=== PATIENT | female | born 1925 | race Caucasian/White ===

== ENCOUNTER 2017-05-12 07:34 | Emergency (ER) | payer MEDICARE, OTHER ==
--- NOTE | 2017-05-14 16:27 | ER ---
ADMIT: 05/12/2017 RM/LOC: ER [facility] MR#: [id number] [id number] ANNET[place] [address] [facility] Emergency Room Report SEX: F AGE: 89 : 1925 DATE: 05/12/2017 See T sheet for complete H and P. ADDENDUM: An 89-year-old female who comes in for a [facility] up to 101.6 in the [facility] and sats that were 88%. She really has no complaints. She had received Tylenol prior to arrival, and she has been afebrile in the emergency department. She denies any difficulty breathing. Does not have any complaints of pain at this time other than chronic pain in her left knee and some chronic pain in her neck. Her physical exam showed that she was borderline tachycardic when she got here, but that has resolved. Our workup in the ER showed that her chest x-ray is stable, and she does have a white count of 12.6. Procalcitonin and lactic were both unremarkable. Cardiac enzymes were negative. Electrolytes showed a potassium of 3.4 with magnesium 1.4. Urinalysis was normal. EKG showed sinus rhythm, rate of 94. She was given magnesium replacement in the emergency department, and I discussed the case with Dr. Mckeon. We will be discharging the patient back to the penitentiary to use prednisone b.i.d. for the next 4 days, and we will place the patient on a Z-Ryan for COPD exacerbation. She did receive Solu-Medrol while in the ER. Ernst Wilhelm MD/ mayelin JOB #: [id number] CC: Ernst Wilhelm MD, Attending Physician UNKNOWN, Family Physician
== END 2017-05-12 10:20 | disposition home or self-care (01) ==
LOC: ER 07:34
DX: J44.1 Chronic obstructive pulmonary disease with (acute) exacerbation (principal); I10 Essential (primary) hypertension; M19.90 Unspecified osteoarthritis, unspecified site; Z87.01 Personal history of pneumonia (recurrent); Z79.82 Long term (current) use of aspirin; Z88.2 Allergy status to sulfonamides; Z88.1 Allergy status to other antibiotic agents